=== PATIENT | male | born 1975 | race Caucasian/White ===

== ENCOUNTER 2024-05-25 22:39 | Emergency (ER) | payer OTHER | END 2024-05-26 00:41 | disposition home or self-care (01) | LOC: JD.ED 22:39 | DX: Z77.098 Contact with and (suspected) exposure to other hazardous, chiefly nonmedicinal, chemicals (principal); F17.210 Nicotine dependence, cigarettes, uncomplicated | CPT/HCPCS: 93005; 99283 ==